=== PATIENT | male | born 1985 ===

== ENCOUNTER 2017-03-27 12:50 | Emergency (ER) | payer MEDICAID ==
[2017-03-27 12:51] VITALS: BMI 31.3
[2017-03-27 13:08] VITALS: BP 130/83; PULSE 80; RESP 16; TEMP 97.2; O2SAT 100
--- NOTE | 2017-03-27 14:11 | ED PDOC ---
HPI: Abdomen Time Seen by Provider: 03/27/17 13:13 Chief Complaint (Nursing): GI Problem Chief Complaint (Provider): abdominal pain History Per: Patient History/Exam Limitations: no limitations Additional Complaint(s): 32yo M in ED currently taking methaodone with c/o constipation worsned in past 1 week. pt admits of hx of chorns disease and recent sever constipation. has tried OTC laxatives which normally help, but this time not effective. admits only to mild abd discomfort but no obsitpation no fever abd distention Past Medical History Reviewed: Historical Data, Nursing Documentation, Vital Signs Vital Signs: Last Vital Signs Temp 97.2 F L 03/27/17 12:56 Pulse 80 03/27/17 12:56 Resp 16 03/27/17 12:56 BP 130/83 03/27/17 12:56 Pulse Ox 100 03/27/17 12:56 - Medical History PMH: Anxiety, Cardia Arrhythmia, Crohn's Disease, Depression Denies: Alzheimer's Disease, Asthma, Bronchitis, COPD, Dementia, Diabetes, Emphysema, Hepatitis, HIV, HTN, Migraine, Multiple Sclerosis, Parkinson's Disease, Pneumonia, Pulmonary Embolism, Chronic Kidney Disease, Seizures, Sexually Transmitted Disease, Sleep Apnea, TIA - Family History Family History: States: Unknown Family Hx - Immunization History Hx Tetanus Toxoid Vaccination: No Hx Influenza Vaccination: No Hx Pneumococcal Vaccination: No - Home Medications Home Medications: Ambulatory Orders Medication Instructions Recorded Ondansetron [Zofran] 4 mg PO Q8H #10 tab 09/29/15 Ondansetron [Zofran] 4 mg PO Q6H PRN #10 tab 04/29/16 traMADol [Ultram] 50 mg PO TID PRN #12 tab 04/29/16 Phosphate Enema [Fleet Enema 135 135 ml RC ONCE #1 nma 03/27/17 Ml] - Allergies Allergies/Adverse Reactions: Allergies Allergy/AdvReac Type Severity Reaction Status Date / Time No Known Allergies Allergy Verified 03/27/17 12:56 Review of Systems ROS Statement: Except As Marked, All Systems Reviewed And Found Negative Constitutional: Negative for: Fever, Chills Gastrointestinal: Positive for: Abdominal Pain, Constipation. Negative for: Nausea, Vomiting Physical Exam - Reviewed Nursing Documentation Reviewed: Yes Vital Signs Reviewed: Yes - Physical Exam Appears: Positive for: Well, Non-toxic, No Acute Distress Skin: Positive for: Normal Color, Warm, DRY Cardiovascular/Chest: Positive for: Regular Rate, Rhythm Respiratory: Positive for: CNT, Normal Breath Sounds Gastrointestinal/Abdominal: Positive for: Normal Exam, Bowel Sounds, Soft. Negative for: Tenderness, Distended Back: Positive for: Normal Inspection. Negative for: L CVA Tenderness, R CVA Tenderness Extremity: Positive for: Normal ROM Neurologic/Psych: Positive for: Alert, Oriented - ECG O2 Sat by Pulse Oximetry: 100 - Radiology X-Ray: Interpreted by Nh X-Ray Interpretation: No Acute Disease Medical Decision Making Medical Decision Making: ptwith constipation advised to try a fleet enema, pt with normal VS and well nontoxic appearing. PT has a GI he follows advised to continue following up with GI to return to ER if with fever severe abd pain nausea or obsitpation. Disposition - Clinical Impression Clinical Impression: Constipation - Patient ED Disposition Is Patient to be Admitted: No Counseled Patient/Family Regarding: Studies Performed, Diagnosis, Need For Followup, Rx Given - Disposition Disposition: Routine/Home Disposition Time: 14:13 Condition: STABLE Prescriptions: Phosphate Enema [Fleet Enema 135 Ml] 135 ml RC ONCE #1 nma Instructions: Constipation (ED), Obstipation (ED), High Fiber Diet (ED)
--- NOTE | 2017-03-27 14:14 | RAD ---
HISTORY: constipation COMPARISON: Chest and abdominal radiographs dated 01/25/2014. FINDINGS: The cardiomediastinal silhouette is within normal limits. The lungs are clear bilaterally without evidence of focal consolidation, pleural effusion or pneumothorax. The visualized osseous structures are unremarkable. There is a prominent matter retained colonic stool. No free intraperitoneal air or evidence of obstruction is identified. IMPRESSION: Prominent amount of retained colonic stool.
== END 2017-03-27 14:31 | disposition home or self-care (01) ==
LOC: H.ER 12:50
DX: K59.00 Constipation, unspecified (principal); K50.90 Crohn's disease, unspecified, without complications; F32.9 Major depressive disorder, single episode, unspecified; F41.9 Anxiety disorder, unspecified

== ENCOUNTER 2017-06-03 11:05 | Emergency (ER) | payer MEDICAID ==
[2017-06-03 11:05] VITALS: BMI 31.3
[2017-06-03 11:29] VITALS: RESP 20; TEMP 98; O2SAT 98
[2017-06-03 12:28] LABS: BASO % 0.4 % (0.0-2.0); EOS # 0.1 K/uL (0.0-0.7); HEMOGLOBIN 13.9 g/dL (12.0-18.0); LYMPH # 1.7 K/uL (1.0-4.3); LYMPH % 38.9 % (20.0-40.0); MEAN CELL VOLUME 85.3 fl (80.0-94.0); MEAN CORPUSCULAR HEMOGLOBIN 29.8 pg (27.0-31.0); MEAN CORPUSCULAR HGB CONC 34.9 g/dL (33.0-37.0); MEAN PLATELET VOLUME 10.6 fl (7.2-11.7); MONO # 0.4 K/uL (0.0-0.8); MONO % 9.2 % (0.0-10.0); NEUT # 2.1 K/uL (1.8-7.0); NEUT % 49.5 % (50.0-75.0); NRBC % 0.1 % (0.0-0.0); RBC 4.67 Mil/uL (4.40-5.90); RED CELL DISTRIBUTION WIDTH 13.2 % (11.5-14.5); WHITE BLOOD COUNT 4.3 K/uL (4.8-10.8)
[2017-06-03 12:30] LABS: ALB/GLOB RATIO 1.2 (1.0-2.1); ALBUMIN 4.2 g/dL (3.5-5.0); ALT/SGPT 35 U/L (21-72); AST/SGOT 25 U/L (17-59); BLOOD UREA NITROGEN 14 mg/dl (9-20); CALCIUM 9.4 mg/dL (8.4-10.2); GFR AFRICAN-AMERICAN > 60; GFR NON-AFRICAN AMERICAN > 60
[2017-06-03 12:41] LABS: PROTHROMBIN TIME 11.9 Seconds (9.8-13.1)
[2017-06-03 12:42] LABS: INR 1.1 (0.9-1.2); PARTIAL THROMBOPLASTIN TIME 35.7 Seconds (25.6-37.1)
--- NOTE | 2017-06-03 13:00 | ED PDOC ---
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 PT states that he felt acute onset of sharp middle, bilateral flank/back pain after getting out of the shower. Pt states he laid on his bed and it seemed to be better but after standing and walking a little he began to have sharp pain again. Pt states it was no associated with N/ V/D, abdominal pain, urinary symptoms, etc. Pt also states he has not been sick or with cough the last few days. Pt denies similar in the past. Past Medical History Reviewed: Historical Data, Nursing Documentation, Vital Signs Vital Signs: Last Vital Signs Temp 98 F 06/03/17 11:23 Pulse 82 06/03/17 11:23 Resp 20 06/03/17 11:23 BP 125/78 06/03/17 11:23 Pulse Ox 98 06/03/17 11:23 - Medical History PMH: Anxiety, Cardia Arrhythmia, Crohn's Disease, Depression Denies: Alzheimer's Disease, Asthma, Bronchitis, COPD, Dementia, Diabetes, Emphysema, Hepatitis, HIV, HTN, Migraine, Multiple Sclerosis, Parkinson's Disease, Pneumonia, Pulmonary Embolism, Chronic Kidney Disease, Seizures, Sexually Transmitted Disease, Sleep Apnea, TIA - Family History Family History: States: Unknown Family Hx - Immunization History Hx Tetanus Toxoid Vaccination: No Hx Influenza Vaccination: No Hx Pneumococcal Vaccination: No - Home Medications Home Medications: Ambulatory Orders Medication Instructions Recorded Ondansetron [Zofran] 4 mg PO Q8H #10 tab 09/29/15 Ondansetron [Zofran] 4 mg PO Q6H PRN #10 tab 04/29/16 traMADol [Ultram] 50 mg PO TID PRN #12 tab 04/29/16 Phosphate Enema [Fleet Enema 135 135 ml RC ONCE #1 nma 03/27/17 Ml] - Allergies Allergies/Adverse Reactions: Allergies Allergy/AdvReac Type Severity Reaction Status Date / Time No Known Allergies Allergy Verified 03/27/17 12:56 - Laboratory Results Result Diagrams: 06/03/17 12:15 06/03/17 12:15 - ECG O2 Sat by Pulse Oximetry: 98 Medical Decision Making Medical Decision Making: PT reports feeling on re-evaluation. Disposition - Clinical Impression Clinical Impression: Acute back pain - Patient ED Disposition Is Patient to be Admitted: No - Disposition Disposition: Routine/Home Disposition Time: 15:26 Condition: GOOD Additional Instructions: Please follow-up with PMd. Instructions: Upper Back Pain (DC) Forms: [employer] (Serbian)
--- NOTE | 2017-06-03 13:51 | RAD ---
HISTORY: back pain COMPARISON: Chest radiograph dated 09/30/2015. TECHNIQUE: Chest PA and lateral FINDINGS: LUNGS: No active pulmonary disease. PLEURA: No significant pleural effusion identified. No pneumothorax apparent. CARDIOVASCULAR: Normal. OSSEOUS STRUCTURES: No significant abnormalities. VISUALIZED UPPER ABDOMEN: Normal. OTHER FINDINGS: None. IMPRESSION: No active disease.
--- NOTE | 2017-06-03 13:53 | CT ---
PROCEDURE: CT Thoracic Spine without contrast HISTORY: sharp pain COMPARISON: None. TECHNIQUE: Axial computed tomography images were obtained of the thoracic spine without intravenous contrast. Coronal and sagittal reformatted images were created and reviewed. Radiation dose: Total exam DLP = mGy-cm. This CT exam was performed using one or more of the following dose reduction techniques: Automated exposure control, adjustment of the mA and/or kV according to patient size, and/or use of iterative reconstruction technique. FINDINGS: VERTEBRAE: Unremarkable. No fracture. Normal alignment. DISCS/SPINAL CANAL/NEURAL FORAMINA: Within the limits of the CT technique, no disc herniation seen. No central canal or neural foraminal stenosis.. PARASPINAL SOFT TISSUES: Unremarkable. OTHER FINDINGS: Incidental note is made of nonspecific ground-glass opacity at the visualize pulmonary medial lower lobes. IMPRESSION: Unremarkable CT of the thoracic spine. Nonspecific pulmonary ground-glass opacity incidentally noted and bilateral lower lobes as imaged.
[2017-06-03 15:38] VITALS: BP 120/70; PULSE 80
== END 2017-06-03 15:39 | disposition home or self-care (01) ==
LOC: H.ER 11:05
DX: M54.9 Dorsalgia, unspecified (principal); F32.9 Major depressive disorder, single episode, unspecified; F41.9 Anxiety disorder, unspecified; K50.90 Crohn's disease, unspecified, without complications
CPT/HCPCS: 71046; 72128; 80053; 85025; 85610; 85730; 96374; 99283; J1885